=== PATIENT | female | born 1990 | race Caucasian/White ===

== ENCOUNTER 2020-07-15 09:27 | Inpatient (IN) | payer OTHER ==
[~2020-07-15] VITALS: Ht 170.2 cm; Wt 106.6 kg
[2020-07-17] MEDS ORDERED: TAPAZOLE10 MG PO (11:26)
[2020-07-17] MEDS ORDERED: PROPANOL PO (11:26)
[2020-07-17] MEDS ORDERED: VITAMIN D250 MC1 PO (11:27)
[2020-07-22] MEDS ORDERED: PROPRANOLOL HCL10 MG PO (08:38)
== END 2020-07-23 09:33 | disposition home or self-care (01) | DRG 627 ==
LOC: LAB 09:27 → EDSTATUS 14:52 → SURH 07-21 15:49 → O/R 07-22 07:08 → SURH 07-22 07:23
PROVIDERS: ADMIT Surgery; ATTEND Surgery
PROC: 0GTK0ZZ Resection of Thyroid Gland, Open Approach (ICD-10-PCS; principal; 2020-07-22 08:45)
DX: E05.10 Thyrotoxicosis with toxic single thyroid nodule without thyrotoxic crisis or storm (principal)

== ENCOUNTER → 2021-01-11 | Emergency (ER) | payer OTHER ==
[~2021-01-11] VITALS: Ht 172.7 cm; Wt 108.0 kg
[~2021-01-11] MED LIST: PROPANOL PO; PROPRANOLOL HCL10 MG PO; SYNTHROID150 MCG; TAPAZOLE10 MG PO; VITAMIN D250 MC1 PO
== END | disposition home or self-care (01) ==
LOC: ER 14:42
DX: S90.02XA Contusion of left ankle, initial encounter (principal); W18.39XA Other fall on same level, initial encounter; Y93.89 Activity, other specified; Y92.098 Other place in other non-institutional residence as the place of occurrence of the external cause; Y99.8 Other external cause status